=== PATIENT | female | born 1985 | race Caucasian/White ===

== ENCOUNTER 2017-04-11 15:11 | Emergency (ER) | payer MEDICAID ==
[~2017-04-11] VITALS: Ht 162.6 cm; Wt 50.6 kg
[2017-04-11 16:20] LABS: ASPARTATE AMINO TRANSFERASE 16 U/L (15-37); BLOOD UREA NITROGEN 19 mg/dL (7-18)
[2017-04-11 16:57] LABS: HCG UR OBC PASS
[2017-04-11 17:20] VITALS: BP 100/58
[2017-04-11] MEDS ORDERED: ONDANSETRON ODT 4 MG ONE (17:26)
[2017-04-11] MEDS ORDERED: KETOROLAC 30 MG/1 ML ONE (17:26)
[2017-04-11] MEDS ORDERED: ONDANSETRON ODT 4 MG PO ONE (17:30)
[2017-04-11] MEDS ORDERED: KETOROLAC 30 MG/1 ML IM ONE ×2 (17:30)
== END 2017-04-11 17:44 | disposition home or self-care (01) ==
LOC: ED 17:38
DX: S29.012A Strain of muscle and tendon of back wall of thorax, initial encounter (principal); X58.XXXA Exposure to other specified factors, initial encounter; Y93.89 Activity, other specified; Y92.89 Other specified places as the place of occurrence of the external cause; Y99.8 Other external cause status
CPT/HCPCS: 36415; 72072; 80053; 81003; 81025; 83690; 85025; 93005; 96372; 99285; J1885; Q0162